=== PATIENT | female | born 1935 | race Caucasian/White ===

== ENCOUNTER → 2017-01-19 | Outpatient (CLI) | payer MEDICARE, OTHER ==
[~2017-01-19] MED LIST: ACET325T14 PO; DIGO125T PO; DILT180C2 PO; FURO-93 PO; HYDR-3144 PO; LEVE500T53 PO; LIDOCAINE 1%, 20ML ONE; LORA2TAB PO; NALO25TA PO; RIVA15TA PO; SODIUM BICARBONATE 4.2%, 5ML ONE; SPIR25TA3 PO; SULF1TAB24 PO; TEMA15CA6 PO
== END | disposition home or self-care (01) ==
LOC: RAD 14:07
PROVIDERS: ATTEND Internal Medicine Cardiovascular Disease
DX: R18.8 Other ascites (principal); I50.32 Chronic diastolic (congestive) heart failure; R14.0 Abdominal distension (gaseous)
CPT/HCPCS: 49083; J3490

== ENCOUNTER → 2017-02-25 | Outpatient (CLI) | payer MEDICARE, OTHER | END | disposition home or self-care (01) | LOC: RAD 12:02 | PROVIDERS: ATTEND Physician Assistant Medical | DX: R18.8 Other ascites (principal); I50.32 Chronic diastolic (congestive) heart failure; N18.9 Chronic kidney disease, unspecified; Z95.2 Presence of prosthetic heart valve | CPT/HCPCS: 49083; J3490 ==

== ENCOUNTER → 2017-03-12 | Outpatient (CLI) | payer MEDICARE, OTHER ==
[~2017-03-12] MED LIST changes: -LIDOCAINE 1%, 20ML ONE; +LIDOCAINE 2%, 20ML ONE
== END | disposition home or self-care (01) ==
LOC: RAD 11:39
PROVIDERS: ATTEND Physician Assistant Medical
DX: R18.8 Other ascites (principal); N18.9 Chronic kidney disease, unspecified; Z95.2 Presence of prosthetic heart valve
CPT/HCPCS: 49083; J3490

== ENCOUNTER → 2017-03-18 | Outpatient (CLI) | payer MEDICARE, OTHER ==
[~2017-03-18] MED LIST changes: -LIDOCAINE 2%, 20ML ONE; -SODIUM BICARBONATE 4.2%, 5ML ONE
== END | disposition home or self-care (01) ==
LOC: CFH 10:05
PROVIDERS: ATTEND Family Medicine
DX: S80.12XA Contusion of left lower leg, initial encounter (principal); X58.XXXA Exposure to other specified factors, initial encounter; Y93.89 Activity, other specified; Y92.89 Other specified places as the place of occurrence of the external cause; Y99.8 Other external cause status

== ENCOUNTER → 2017-03-22 | Outpatient (CLI) | payer MEDICARE, OTHER ==
[~2017-03-22] MED LIST changes: +LIDOCAINE 1%, 20ML ONE
== END | disposition home or self-care (01) ==
LOC: RAD 10:07
PROVIDERS: ATTEND Physician Assistant Medical
DX: R18.8 Other ascites (principal)
CPT/HCPCS: 49083; J3490

== ENCOUNTER → 2017-04-09 | Outpatient (CLI) | payer MEDICARE, OTHER | END | disposition home or self-care (01) | LOC: RAD 13:31 | PROVIDERS: ATTEND Physician Assistant Medical | DX: R18.8 Other ascites (principal); I50.32 Chronic diastolic (congestive) heart failure | CPT/HCPCS: 49083; J3490 ==

== ENCOUNTER → 2017-04-26 | Outpatient (CLI) | payer MEDICARE, OTHER ==
[~2017-04-26] MED LIST changes: +ALBUMIN HUMAN 25%, 25GM/100ML ONE
== END | disposition home or self-care (01) ==
LOC: RAD 13:19
PROVIDERS: ATTEND Physician Assistant Medical
DX: R18.8 Other ascites (principal); N18.9 Chronic kidney disease, unspecified; I50.32 Chronic diastolic (congestive) heart failure; Z95.2 Presence of prosthetic heart valve
CPT/HCPCS: 49083; J3490; P9047

== ENCOUNTER → 2017-05-19 | Outpatient (CLI) | payer MEDICARE, OTHER ==
[~2017-05-19] MED LIST changes: +ALBUMIN HUMAN 25% 12.5 GM/50 ML ONE; -ALBUMIN HUMAN 25%, 25GM/100ML ONE; -HYDR-3144 PO; +HYDR-3245 PO
== END | disposition home or self-care (01) ==
LOC: RAD 11:50
PROVIDERS: ATTEND Physician Assistant Medical
DX: R18.8 Other ascites (principal); R14.0 Abdominal distension (gaseous); I50.32 Chronic diastolic (congestive) heart failure
CPT/HCPCS: 49083; J3490; P9047

== ENCOUNTER → 2017-08-26 | Outpatient (CLI) | payer MEDICARE, OTHER ==
[~2017-08-26] MED LIST changes: -ALBUMIN HUMAN 25% 12.5 GM/50 ML ONE
== END | disposition home or self-care (01) ==
LOC: RAD 09:38
PROVIDERS: ATTEND Physician Assistant Medical
DX: R18.8 Other ascites (principal)
CPT/HCPCS: 49083; J3490

== ENCOUNTER → 2017-10-21 | Outpatient (CLI) | payer MEDICARE, OTHER ==
[~2017-10-21] MED LIST changes: +ALBUMIN HUMAN 25% 100 ML IV ONE
== END | disposition home or self-care (01) ==
LOC: RAD 11:05
PROVIDERS: ATTEND Physician Assistant Medical
DX: I50.32 Chronic diastolic (congestive) heart failure (principal)
CPT/HCPCS: 49083; J3490; P9047

== ENCOUNTER → 2017-11-04 | Outpatient (CLI) | payer MEDICARE, OTHER ==
[~2017-11-04] MED LIST changes: -ALBUMIN HUMAN 25% 100 ML IV ONE
== END | disposition home or self-care (01) ==
LOC: RAD 11:09
PROVIDERS: ATTEND Internal Medicine Cardiovascular Disease
DX: R18.8 Other ascites (principal); I50.32 Chronic diastolic (congestive) heart failure; I48.2 Chronic atrial fibrillation; Z95.2 Presence of prosthetic heart valve
CPT/HCPCS: 49083; J3490

== ENCOUNTER → 2018-01-14 | Outpatient (CLI) | payer MEDICARE, OTHER ==
[~2018-01-14] MED LIST changes: -LIDOCAINE 1%, 20ML ONE; +LIDOCAINE-MPF 1%, 5ML ONE
== END | disposition home or self-care (01) ==
LOC: RAD 13:57
PROVIDERS: ATTEND Internal Medicine Cardiovascular Disease
DX: R18.8 Other ascites (principal); I48.2 Chronic atrial fibrillation; I50.32 Chronic diastolic (congestive) heart failure; Z95.2 Presence of prosthetic heart valve
CPT/HCPCS: 49083

== ENCOUNTER → 2018-03-04 | Outpatient (CLI) | payer MEDICARE, OTHER ==
[~2018-03-04] MED LIST changes: +LIDOCAINE 2%, 20ML ONE; -LIDOCAINE-MPF 1%, 5ML ONE
== END | disposition home or self-care (01) ==
LOC: RAD 13:18
PROVIDERS: ATTEND Physician Assistant Medical
DX: I50.32 Chronic diastolic (congestive) heart failure (principal); I48.2 Chronic atrial fibrillation; R18.8 Other ascites; Z95.2 Presence of prosthetic heart valve
CPT/HCPCS: 49083; J3490

== ENCOUNTER → 2018-03-15 | Outpatient (CLI) | payer MEDICARE, OTHER ==
[~2018-03-15] MED LIST changes: -LIDOCAINE 2%, 20ML ONE; +LIDOCAINE-MPF 1%, 2ML ONE
== END | disposition home or self-care (01) ==
LOC: RAD 13:20
PROVIDERS: ATTEND Physician Assistant Medical
DX: I48.2 Chronic atrial fibrillation (principal); I50.32 Chronic diastolic (congestive) heart failure; Z95.2 Presence of prosthetic heart valve
CPT/HCPCS: 49083; J3490

== ENCOUNTER → 2018-04-05 | Outpatient (CLI) | payer MEDICARE, OTHER ==
[~2018-04-05] MED LIST changes: -LIDOCAINE-MPF 1%, 2ML ONE; +LIDOCAINE-MPF 2% ,5ML ONE
== END | disposition home or self-care (01) ==
LOC: RAD 13:49
PROVIDERS: ATTEND Family Medicine
DX: I48.91 Unspecified atrial fibrillation (principal); I50.9 Heart failure, unspecified; Z95.2 Presence of prosthetic heart valve
CPT/HCPCS: 49083; J3490

== ENCOUNTER → 2018-04-15 | Outpatient (CLI) | payer MEDICARE, OTHER | END | disposition home or self-care (01) | LOC: RAD 12:02 | PROVIDERS: ATTEND Family Medicine | DX: I48.91 Unspecified atrial fibrillation (principal); I50.9 Heart failure, unspecified; R18.8 Other ascites; Z95.2 Presence of prosthetic heart valve | CPT/HCPCS: 49083; J3490 ==

== ENCOUNTER → 2018-05-03 | Outpatient (CLI) | payer MEDICARE, OTHER ==
[~2018-05-03] MED LIST changes: -LIDOCAINE-MPF 2% ,5ML ONE; +LIDOCAINE-MPF 2%, 2ML ONE; -SPIR25TA3 PO; +SPIR25TA5 PO
== END | disposition home or self-care (01) ==
LOC: RAD 12:41
PROVIDERS: ATTEND Family Medicine
DX: I48.2 Chronic atrial fibrillation (principal); I50.32 Chronic diastolic (congestive) heart failure; R18.8 Other ascites; R10.9 Unspecified abdominal pain; R14.0 Abdominal distension (gaseous); Z95.2 Presence of prosthetic heart valve
CPT/HCPCS: 49083; J3490

== ENCOUNTER → 2018-05-18 | Outpatient (CLI) | payer MEDICARE, OTHER | END | disposition home or self-care (01) | LOC: RAD 13:50 | PROVIDERS: ATTEND Internal Medicine Cardiovascular Disease | DX: R18.8 Other ascites (principal); I50.32 Chronic diastolic (congestive) heart failure; N18.9 Chronic kidney disease, unspecified; I48.91 Unspecified atrial fibrillation; Z95.2 Presence of prosthetic heart valve | CPT/HCPCS: 49083; J3490 ==

== ENCOUNTER → 2018-06-02 | Outpatient (CLI) | payer MEDICARE, OTHER | END | disposition home or self-care (01) | LOC: RAD 11:19 | PROVIDERS: ATTEND Internal Medicine Cardiovascular Disease | DX: I50.32 Chronic diastolic (congestive) heart failure (principal); N18.9 Chronic kidney disease, unspecified; R18.8 Other ascites | CPT/HCPCS: 49083; J3490 ==

== ENCOUNTER → 2018-07-07 | Outpatient (CLI) | payer MEDICARE, OTHER ==
[~2018-07-07] MED LIST changes: +LIDOCAINE-MPF 1%, 5ML ONE; -LIDOCAINE-MPF 2%, 2ML ONE
== END | disposition home or self-care (01) ==
LOC: RAD 11:26
PROVIDERS: ATTEND Internal Medicine Cardiovascular Disease
DX: I50.32 Chronic diastolic (congestive) heart failure (principal); N18.9 Chronic kidney disease, unspecified; R18.8 Other ascites
CPT/HCPCS: 49083

== ENCOUNTER → 2018-08-16 | Outpatient (CLI) | payer MEDICARE, OTHER | END | disposition home or self-care (01) | LOC: RAD 10:04 | PROVIDERS: ATTEND Internal Medicine Cardiovascular Disease | DX: R18.8 Other ascites (principal); I50.32 Chronic diastolic (congestive) heart failure; N18.9 Chronic kidney disease, unspecified; R10.9 Unspecified abdominal pain; R14.0 Abdominal distension (gaseous) | CPT/HCPCS: 49083 ==

== ENCOUNTER → 2018-08-26 | Outpatient (CLI) | payer MEDICARE, OTHER | END | disposition home or self-care (01) | LOC: RAD 11:28 | PROVIDERS: ATTEND Internal Medicine Cardiovascular Disease | DX: I50.32 Chronic diastolic (congestive) heart failure (principal); N18.9 Chronic kidney disease, unspecified; R18.8 Other ascites | CPT/HCPCS: 49083 ==

== ENCOUNTER → 2018-09-16 | Outpatient (CLI) | payer MEDICARE, OTHER | END | disposition home or self-care (01) | LOC: RAD 14:37 | PROVIDERS: ATTEND Internal Medicine Cardiovascular Disease | DX: I50.32 Chronic diastolic (congestive) heart failure (principal); I13.0 Hypertensive heart and chronic kidney disease with heart failure and stage 1 through stage 4 chronic kidney disease, or unspecified chronic kidney disease; N18.9 Chronic kidney disease, unspecified; R18.8 Other ascites | CPT/HCPCS: 49083 ==

== ENCOUNTER → 2018-10-05 | Outpatient (CLI) | payer MEDICARE, OTHER | END | disposition home or self-care (01) | LOC: RAD 11:50 | PROVIDERS: ATTEND Internal Medicine Cardiovascular Disease | DX: R18.8 Other ascites (principal) | CPT/HCPCS: 49083 ==

== ENCOUNTER 2018-10-24 11:32 | Outpatient (CLI) | payer MEDICARE, OTHER ==
[~2018-10-24 11:32] MED LIST changes: -LIDOCAINE-MPF 1%, 5ML ONE
[2018-10-24] MEDS ORDERED: LIDOCAINE-MPF 1%, 5ML ONE (11:50)
== END 2018-10-24 23:59 | disposition home or self-care (01) ==
LOC: RAD 11:32
PROVIDERS: ATTEND Internal Medicine Cardiovascular Disease
DX: R18.8 Other ascites (principal); Z86.79 Personal history of other diseases of the circulatory system; Z87.448 Personal history of other diseases of urinary system
CPT/HCPCS: 49083

== ENCOUNTER → 2018-11-23 | Outpatient (CLI) | payer MEDICARE, OTHER ==
[~2018-11-23] MED LIST changes: +LIDOCAINE-MPF 1%, 5ML ONE
== END | disposition home or self-care (01) ==
LOC: RAD 11:18
PROVIDERS: ATTEND Internal Medicine Cardiovascular Disease
DX: R18.8 Other ascites (principal)
CPT/HCPCS: 49083

== ENCOUNTER → 2019-01-06 | Outpatient (CLI) | payer MEDICARE, OTHER | END | disposition home or self-care (01) | LOC: RAD 11:22 | PROVIDERS: ATTEND Nurse Practitioner Family | DX: K70.31 Alcoholic cirrhosis of liver with ascites (principal) | CPT/HCPCS: 49083 ==

== ENCOUNTER → 2019-02-17 | Outpatient (CLI) | payer MEDICARE, OTHER | END | disposition home or self-care (01) | LOC: RAD 11:25 | PROVIDERS: ATTEND Family Medicine | DX: R18.8 Other ascites (principal) | CPT/HCPCS: 49083 ==

== ENCOUNTER 2019-04-12 11:32 | Outpatient (CLI) | payer MEDICARE, OTHER ==
[~2019-04-12 11:32] MED LIST changes: -LIDOCAINE-MPF 1%, 5ML ONE
[2019-04-12] MEDS ORDERED: LIDOCAINE-MPF 1%, 5ML ONE (11:37)
== END 2019-04-12 23:59 | disposition home or self-care (01) ==
LOC: RAD 11:32
PROVIDERS: ATTEND Family Medicine
DX: R18.8 Other ascites (principal)
CPT/HCPCS: 49083

== ENCOUNTER 2019-04-26 11:36 | Outpatient (CLI) | payer MEDICARE, OTHER ==
[2019-04-26] MEDS ORDERED: LIDOCAINE-MPF 1%, 5ML ONE (11:52)
== END 2019-04-26 23:59 | disposition home or self-care (01) ==
LOC: RAD 11:36
PROVIDERS: ATTEND Family Medicine
DX: R18.8 Other ascites (principal)
CPT/HCPCS: 49083

== ENCOUNTER 2019-08-17 14:26 | Outpatient (CLI) | payer MEDICARE, OTHER ==
[2019-08-17] MEDS ORDERED: LIDOCAINE 1%, 10ML ONE (14:42)
== END 2019-08-17 23:59 | disposition home or self-care (01) ==
LOC: RAD 14:26
PROVIDERS: ATTEND Family Medicine
DX: R18.8 Other ascites (principal); K74.69 Other cirrhosis of liver; I27.20 Pulmonary hypertension, unspecified
CPT/HCPCS: 49083

== ENCOUNTER → 2019-09-05 | Outpatient (CLI) | payer MEDICARE, OTHER ==
[~2019-09-05] MED LIST changes: +LIDOCAINE 1%, 10ML ONE
== END | disposition home or self-care (01) ==
LOC: RAD 11:31
PROVIDERS: ATTEND Family Medicine
DX: R18.8 Other ascites (principal)
CPT/HCPCS: 49083

== ENCOUNTER 2019-09-25 13:35 | Outpatient (CLI) | payer MEDICARE, OTHER ==
[~2019-09-25 13:35] MED LIST changes: -LIDOCAINE 1%, 10ML ONE
[2019-09-25] MEDS ORDERED: LIDOCAINE 1%, 10ML ONE (13:50)
== END 2019-09-25 23:59 | disposition home or self-care (01) ==
LOC: RAD 13:35
PROVIDERS: ATTEND Family Medicine
DX: R18.8 Other ascites (principal); I50.810 Right heart failure, unspecified; K72.90 Hepatic failure, unspecified without coma
CPT/HCPCS: 49083

== ENCOUNTER 2019-10-17 11:47 | Outpatient (CLI) | payer MEDICARE, OTHER ==
[2019-10-17] MEDS ORDERED: LIDOCAINE 1%, 10ML ONE (11:57)
== END 2019-10-17 23:59 | disposition home or self-care (01) ==
LOC: RAD 11:47
PROVIDERS: ATTEND Family Medicine
DX: R18.8 Other ascites (principal)
CPT/HCPCS: 49083

== ENCOUNTER → 2019-11-09 | Outpatient (CLI) | payer MEDICARE, OTHER ==
[~2019-11-09] MED LIST changes: -DIGO125T PO; +DIGO125T85 PO; +LIDOCAINE 1%, 10ML ONE
== END | disposition home or self-care (01) ==
LOC: RAD 13:28
PROVIDERS: ATTEND Family Medicine
DX: R18.8 Other ascites (principal); I27.20 Pulmonary hypertension, unspecified; K74.60 Unspecified cirrhosis of liver
CPT/HCPCS: 49083

== ENCOUNTER → 2019-12-13 | Outpatient (CLI) | payer MEDICARE, OTHER | END | disposition home or self-care (01) | LOC: RAD 11:14 | PROVIDERS: ATTEND Family Medicine | DX: R18.8 Other ascites (principal); K74.60 Unspecified cirrhosis of liver; I27.20 Pulmonary hypertension, unspecified; I50.9 Heart failure, unspecified; Z88.8 Allergy status to other drugs, medicaments and biological substances; Z79.899 Other long term (current) drug therapy; Z82.49 Family history of ischemic heart disease and other diseases of the circulatory system | CPT/HCPCS: 49083 ==

== ENCOUNTER 2020-01-18 12:45 | Outpatient (CLI) | payer MEDICARE, OTHER | END 2020-01-18 23:59 | disposition home or self-care (01) | LOC: RAD 12:45 | PROVIDERS: ATTEND Family Medicine | DX: R18.8 Other ascites (principal); K74.60 Unspecified cirrhosis of liver; I27.20 Pulmonary hypertension, unspecified | CPT/HCPCS: 49083 ==

== ENCOUNTER 2020-02-01 13:39 | Outpatient (CLI) | payer MEDICARE, OTHER ==
[~2020-02-01 13:39] MED LIST changes: -LIDOCAINE 1%, 10ML ONE
[2020-02-01] MEDS ORDERED: LIDOCAINE 1%, 10ML ONE (13:49)
== END 2020-02-01 23:59 | disposition home or self-care (01) ==
LOC: RAD 13:39
PROVIDERS: ATTEND Family Medicine
DX: R18.8 Other ascites (principal)
CPT/HCPCS: 49083

== ENCOUNTER → 2020-02-22 | Outpatient (CLI) | payer MEDICARE, OTHER ==
[~2020-02-22] MED LIST changes: +LIDOCAINE 1%, 10ML ONE
== END | disposition home or self-care (01) ==
LOC: RAD 12:21
PROVIDERS: ATTEND Family Medicine
DX: R18.8 Other ascites (principal); K74.60 Unspecified cirrhosis of liver
CPT/HCPCS: 49083

== ENCOUNTER → 2020-03-18 | Outpatient (CLI) | payer MEDICARE, OTHER | END | disposition home or self-care (01) | LOC: RAD 12:52 | PROVIDERS: ATTEND Family Medicine | DX: R18.8 Other ascites (principal); K74.60 Unspecified cirrhosis of liver; I27.20 Pulmonary hypertension, unspecified | CPT/HCPCS: 49083 ==

== ENCOUNTER 2020-04-15 12:49 | Outpatient (CLI) | payer MEDICARE, OTHER, MEDICAID ==
[~2020-04-15 12:49] MED LIST changes: -LIDOCAINE 1%, 10ML ONE
[2020-04-15] MEDS ORDERED: LIDOCAINE 1%, 10ML ONE (13:28)
== END 2020-04-15 23:59 | disposition home or self-care (01) ==
LOC: RAD 12:49
PROVIDERS: ATTEND Family Medicine
DX: R18.8 Other ascites (principal); Z79.899 Other long term (current) drug therapy; Z88.8 Allergy status to other drugs, medicaments and biological substances; Z82.49 Family history of ischemic heart disease and other diseases of the circulatory system
CPT/HCPCS: 49083

== ENCOUNTER 2020-05-14 13:18 | Outpatient (CLI) | payer MEDICARE, OTHER ==
[2020-05-14] MEDS ORDERED: LIDOCAINE 1%, 10ML ONE (13:23)
== END 2020-05-14 23:59 | disposition home or self-care (01) ==
LOC: RAD 13:18
PROVIDERS: ATTEND Family Medicine
DX: R18.8 Other ascites (principal); K74.60 Unspecified cirrhosis of liver; I10 Essential (primary) hypertension
CPT/HCPCS: 49083

== ENCOUNTER → 2020-06-12 | Outpatient (CLI) | payer MEDICARE, OTHER ==
[~2020-06-12] MED LIST changes: +LIDOCAINE 1%, 10ML ONE
== END | disposition home or self-care (01) ==
LOC: RAD 13:35
PROVIDERS: ATTEND Family Medicine
DX: R18.8 Other ascites (principal); K74.60 Unspecified cirrhosis of liver; I10 Essential (primary) hypertension
CPT/HCPCS: 49083

== ENCOUNTER → 2020-08-28 | Outpatient (CLI) | payer MEDICARE, OTHER ==
[~2020-08-28] MED LIST changes: -NALO25TA PO; +NALO25TA4 PO
== END | disposition home or self-care (01) ==
LOC: RAD 11:17
PROVIDERS: ATTEND Family Medicine
DX: R18.8 Other ascites (principal); K74.60 Unspecified cirrhosis of liver; I12.9 Hypertensive chronic kidney disease with stage 1 through stage 4 chronic kidney disease, or unspecified chronic kidney disease; N18.9 Chronic kidney disease, unspecified; I48.91 Unspecified atrial fibrillation; F41.9 Anxiety disorder, unspecified; M17.0 Bilateral primary osteoarthritis of knee; Z88.8 Allergy status to other drugs, medicaments and biological substances; Z79.899 Other long term (current) drug therapy; Z98.890 Other specified postprocedural states
CPT/HCPCS: 49083